=== PATIENT | male | born 1945 | race Caucasian/White ===

== ENCOUNTER 2017-07-31 11:11 | Emergency (ER) | payer MEDICARE ==
[~2017-07-31] VITALS: Ht 182.9 cm; Wt 78.1 kg
[2017-07-31 15:44] VITALS: BP 124/66
== END 2017-07-31 15:46 | disposition home or self-care (01) ==
LOC: ED 15:40
DX: I82.411 Acute embolism and thrombosis of right femoral vein (principal); Z87.891 Personal history of nicotine dependence
CPT/HCPCS: 99283; 99284

== ENCOUNTER → 2020-10-23 | Outpatient (CLI) | payer MEDICARE, OTHER ==
[~2020-10-23] MED LIST: AMIO200T42 PO; ASPI81TA45 PO; ATOR40TA78 PO; CLOP75TA PO; FURO-93 PO; LISI5TAB7 PO; METO25TA35 PO; POTA20TA6 PO; TRAM50TA2 PO
== END | disposition home or self-care (01) ==
LOC: CFH 14:53
PROVIDERS: ATTEND Internal Medicine Cardiovascular Disease
DX: I36.1 Nonrheumatic tricuspid (valve) insufficiency (principal); I11.9 Hypertensive heart disease without heart failure; I25.5 Ischemic cardiomyopathy; Z86.718 Personal history of other venous thrombosis and embolism; Z95.1 Presence of aortocoronary bypass graft
CPT/HCPCS: 93306

== ENCOUNTER 2021-02-26 08:59 | Outpatient (CLI) | payer MEDICARE, OTHER ==
[~2021-02-26 08:59] MED LIST changes: +POTA-143 PO; -POTA20TA6 PO
[2021-02-26 09:26] LABS: ALANINE AMINOTRANSFERASE 34 U/L (12-78); ALBUMIN 3.7 g/dL (3.4-5.0); ANION GAP 4 mmol/L (5-15); CALCIUM 8.7 mg/dL (8.5-10.1); CHLORIDE 111 mmol/L (98-107); CREATININE 0.82 mg/dL (0.7-1.3)
[2021-02-26 09:28] LABS: ALKALINE PHOSPHATASE 94 U/L (45-117); BILIRUBIN,TOTAL 0.7 mg/dL (0.2-1.0); CHOL/HDL RATIO 3.6; CHOLESTEROL, TOTAL 181 mg/dL (140-239); HDL CHOL % 28 % (26-37); HDL CHOLESTEROL (DIRECT) 50 mg/dL (40-60); LDL CHOLESTEROL,CALCULATED 117 mg/dL (54-169); LDL/HDL RATIO 2.3 (0.5-3.0); TOTAL PROTEIN 6.9 g/dL (6.4-8.2); TRIGLYCERIDES 68 mg/dL (50-200); VLDL CHOLESTEROL 14 mg/dL (0-25)
== END 2021-02-26 23:59 | disposition home or self-care (01) ==
LOC: LAB 08:59
PROVIDERS: ATTEND Internal Medicine Cardiovascular Disease
DX: E78.2 Mixed hyperlipidemia (principal); I25.5 Ischemic cardiomyopathy; I48.91 Unspecified atrial fibrillation; R74.9 Abnormal serum enzyme level, unspecified; Z95.1 Presence of aortocoronary bypass graft
CPT/HCPCS: 36415; 80053; 80061